=== PATIENT | male | born 1965 | race Caucasian/White ===

== ENCOUNTER 2018-10-17 17:25 | Emergency (ER) | payer OTHER ==
[~2018-10-17] VITALS: Ht 175.3 cm; Wt 86.2 kg
[2018-10-17] MEDS ORDERED: XARELTO20 MG PO (19:35)
[2018-10-17] MEDS ORDERED: XARELTO15 MG PO (19:35)
== END 2018-10-17 19:41 | disposition home or self-care (01) ==
LOC: ER 17:25
DX: I82.432 Acute embolism and thrombosis of left popliteal vein (principal); W19.XXXA Unspecified fall, initial encounter
CPT/HCPCS: 93971; 99284-25